=== PATIENT | female | born 1975 | race African-American/Black ===

== ENCOUNTER 2016-06-27 20:18 | Emergency (ER) | payer SELFPAY ==
[~2016-06-27] VITALS: Ht 157.5 cm; Wt 76.7 kg
[~2016-06-27 20:18] MED LIST: DIAZ2TAB3 PO
[2016-06-27] MEDS ORDERED: ONDANSETRON 2MG/ML, 2ML ONE (21:52)
[2016-06-27] MEDS ORDERED: ONDANSETRON 2MG/ML, 2ML IVPush ONE (22:00)
[2016-06-27] MEDS ORDERED: SODIUM CHLORIDE FLUSH 10ML SYR IVF ONE (22:00)
[2016-06-27] MEDS ORDERED: SODIUM CHLORIDE 0.9% 1,000ML IVBOLUS ONE (22:00)
[2016-06-27 22:40] LABS: ASPARTATE AMINO TRANSFERASE 16 U/L (15-37); BLOOD UREA NITROGEN 9 mg/dL (7-18)
[2016-06-27 23:12] VITALS: BP 112/74
== END 2016-06-27 23:15 | disposition home or self-care (01) ==
LOC: ED 23:09
DX: G44.89 Other headache syndrome (principal); R11.0 Nausea; E86.0 Dehydration
CPT/HCPCS: 36415; 70450; 80053; 81003; 84703; 85025; 93005; 96361; 96374; 99285; J2405; J7030

== ENCOUNTER 2016-08-26 23:11 | Emergency (ER) | payer SELFPAY ==
[~2016-08-26] VITALS: Ht 157.5 cm; Wt 74.1 kg
[2016-08-26] MEDS ORDERED: MORPHINE SULFATE 4 MG/ML, 1ML ONE (23:59)
[2016-08-26] MEDS ORDERED: PROMETHAZINE 25 MG/ML, 1ML ONE (23:59)
[2016-08-27] MEDS ORDERED: SODIUM CHLORIDE 0.9% 1,000ML IVBOLUS ONE
[2016-08-27] MEDS ORDERED: FAMOTIDINE 20 MG/2 ML IVP ONE
[2016-08-27] MEDS ORDERED: PROMETHAZINE 25 MG/ML, 1ML IM ONE
[2016-08-27] MEDS ORDERED: FAMOTIDINE 20 MG/2 ML ONE
[2016-08-27] MEDS ORDERED: MORPHINE SULFATE 4 MG/ML, 1ML IVPush PRN
[2016-08-27 00:01] LABS: ASPARTATE AMINO TRANSFERASE 12 U/L (15-37); BLOOD UREA NITROGEN 12 mg/dL (7-18)
[2016-08-27 01:52] VITALS: BP 136/80
== END 2016-08-27 02:20 | disposition home or self-care (01) ==
LOC: ED 23:59
DX: K80.70 Calculus of gallbladder and bile duct without cholecystitis without obstruction (principal)
CPT/HCPCS: 36415; 76700; 80053; 81003; 83690; 85025; 96361; 96372; 96374; 96375; 99285; J2550; J7030; S0028

== ENCOUNTER 2016-11-02 09:34 | Emergency (ER) | payer SELFPAY ==
[~2016-11-02] VITALS: Ht 157.5 cm; Wt 73.8 kg
[2016-11-02] MEDS ORDERED: SODIUM CHLORIDE 0.9% 1,000 ML IV ONE (11:09)
[2016-11-02] MEDS ORDERED: MECLIZINE CHEWABLE 25 MG TAB ONE (11:18)
[2016-11-02] MEDS ORDERED: ONDANSETRON 2MG/ML, 2ML ONE (11:19)
[2016-11-02 11:29] LABS: HEMATOCRIT 40.9 % (34.6-47.8); HEMOGLOBIN 13.7 g/dL (11.7-16.4); WHITE BLOOD COUNT 6.9 x10^3/uL (3.4-10)
[2016-11-02] MEDS ORDERED: SODIUM CHLORIDE 0.9% 1,000ML IVBOLUS ONE (11:30)
[2016-11-02] MEDS ORDERED: ONDANSETRON 2MG/ML, 2ML IVPush ONE (11:30)
[2016-11-02] MEDS ORDERED: MECLIZINE CHEWABLE 25 MG TAB PO ONE (11:30)
[2016-11-02] MEDS ORDERED: SODIUM CHLORIDE FLUSH 10ML SYR IVF ONE (11:30)
[2016-11-02 11:41] LABS: ASPARTATE AMINO TRANSFERASE 11 U/L (15-37); BLOOD UREA NITROGEN 7 mg/dL (7-18)
[2016-11-02 14:06] VITALS: BP 139/85
== END 2016-11-02 14:08 | disposition home or self-care (01) ==
LOC: ED 13:16
DX: H81.393 Other peripheral vertigo, bilateral (principal); H81.13 Benign paroxysmal vertigo, bilateral; Z90.710 Acquired absence of both cervix and uterus
CPT/HCPCS: 36415; 70450; 80053; 85025; 93005; 96361; 96374; 99285; J2405; J7030

== ENCOUNTER 2016-12-29 11:34 | Day surgery (SDC) | payer BC, OTHER ==
[~2016-12-29] VITALS: Ht 157.5 cm; Wt 72.7 kg
[~2016-12-29 11:34] MED LIST changes: +INDOCYANINE GREEN 25 MG VIAL IV ONE; +None at this Time
[2016-12-29] MEDS ORDERED: MIDAZOLAM 1 MG/ML, 2ML ONE (11:48)
[2016-12-29] MEDS ORDERED: FENTANYL PF 250 MCG/5ML ONE (11:48)
[2016-12-29] MEDS ORDERED: GLYCOPYRROLATE 0.2MG/1ML, 5ML ONE (11:50)
[2016-12-29] MEDS ORDERED: ROCURONIUM 10 MG/ML ONE (11:50)
[2016-12-29] MEDS ORDERED: PROPOFOL 10 MG/ML, 20ML ONE (11:50)
[2016-12-29] MEDS ORDERED: DEXAMETHASONE 4 MG/ML, 1ML ONE (11:50)
[2016-12-29] MEDS ORDERED: SUCCINYLCHOLINE 20 MG/ML, 10ML ONE (11:50)
[2016-12-29] MEDS ORDERED: CEFAZOLIN 1,000 MG ONE (11:50)
[2016-12-29] MEDS ORDERED: NEOSTIGMINE 1 MG/ML, 10ML ONE (11:50)
[2016-12-29] MEDS ORDERED: ONDANSETRON 2MG/ML, 2ML ONE (11:50)
[2016-12-29] MEDS ORDERED: LACTATED RINGERS 1,000 ML IV SCH (11:57)
[2016-12-29 11:59] VITALS: BP 133/95
[2016-12-29] MEDS ORDERED: LIDOCAINE 1%, 2ML SQ PRN (12:00)
[2016-12-29] MEDS ORDERED: KETOROLAC 30 MG/1 ML ONE ×2 (12:20→14:01)
[2016-12-29] MEDS ORDERED: BUPIVACAINE/PF 0.5% ONE (12:54)
[2016-12-29] MEDS ORDERED: EPINEPHRINE 1 MG/ML, 1ML ONE (12:54)
[2016-12-29] MEDS ORDERED: INDOCYANINE GREEN 25 MG VIAL ONE (13:08)
[2016-12-29] MEDS ORDERED: PROMETHAZINE 25 MG/ML, 1ML ONE (13:15)
[2016-12-29] MEDS ORDERED: ESMOLOL 100 MG/10 ML ONE (13:35)
[2016-12-29] MEDS ORDERED: HYDROmorphone 1 MG/ML, 1ML ONE ×2 (13:41→14:59)
[2016-12-29] MEDS ORDERED: OXYcodone 5 MG/5 ML ORAL.SOL UDC PO PRN (14:00)
[2016-12-29] MEDS ORDERED: ACETAMINOPHEN 325 MG TABLET PO PRN (14:00)
[2016-12-29] MEDS ORDERED: HYDROcodone/APAP 7.5-325MG/15ML UDC PO PRN (14:00)
[2016-12-29] MEDS ORDERED: ONDANSETRON 2MG/ML, 2ML IVPush PRN ×2 (14:00→14:30)
[2016-12-29] MEDS ORDERED: PROMETHAZINE 25 MG/ML, 1ML IV PRN (14:00)
[2016-12-29] MEDS ORDERED: MIDAZOLAM 1 MG/ML, 2ML IV PRN (14:00)
[2016-12-29] MEDS ORDERED: NALOXONE 0.4 MG/ML, 1ML ONE (14:21)
[2016-12-29] MEDS ORDERED: ALBUTEROL/IPRATROPIUM 2.5MG/0.5MG, 3 ML ONE (14:27)
[2016-12-29] MEDS ORDERED: morphine SULFATE 10 MG/ML, 1ML IVPush PRN (14:30)
[2016-12-29] MEDS ORDERED: KETOROLAC 30 MG/1 ML IVPush PRN (14:30)
[2016-12-29] MEDS ORDERED: ACETAMINOPHEN 650 MG/20.3 ML UDC ONE (14:39)
[2016-12-29] MEDS ORDERED: FENTANYL PF 100 MCG/2ML ONE ×2 (14:39→14:59)
[2016-12-29] MEDS ORDERED: OXYcodone 5 MG/5 ML ORAL.SOL UDC ONE (14:39)
[2016-12-29] MEDS: FENTANYL PF 100 MCG/2ML IV PRN ×5 (14:40→15:23)
[2016-12-29] MEDS: HYDROmorphone 1 MG/ML, 1ML IV PRN ×4 (15:03→15:24)
[2016-12-29] MEDS ORDERED: SUGAMMADEX 200 MG/2 ML IVPush ONE (15:42)
== END 2016-12-29 22:40 ==
LOC: OUT 11:34 → 4NOR 19:26 → OUT 22:40
PROVIDERS: ATTEND Surgery
DX: K80.10 Calculus of gallbladder with chronic cholecystitis without obstruction (principal); Z90.710 Acquired absence of both cervix and uterus; Z88.8 Allergy status to other drugs, medicaments and biological substances
CPT/HCPCS: 47562; 88304; 94640; G0378; J0171; J0330; J0690; J1100; J1170; J1885; J2250; J2405; J2704; J2710; J3010; J3490; J7120; S2900

== ENCOUNTER → 2017-01-06 | Outpatient (CLI) | payer OTHER ==
[~2017-01-06] MED LIST changes: -INDOCYANINE GREEN 25 MG VIAL IV ONE; +OMNIPAQUE 350 MG/ML, 150 ML BOTTLE ONE
== END | disposition home or self-care (01) ==
LOC: RAD 14:14
PROVIDERS: ATTEND Nurse Practitioner Family
DX: K76.89 Other specified diseases of liver (principal)
CPT/HCPCS: 74178; Q9967

== ENCOUNTER 2017-01-08 01:27 | Emergency (ER) | payer OTHER ==
[~2017-01-08] VITALS: Ht 157.5 cm; Wt 72.7 kg
[~2017-01-08 01:27] MED LIST changes: -OMNIPAQUE 350 MG/ML, 150 ML BOTTLE ONE
[2017-01-08] MEDS ORDERED: SODIUM CHLORIDE 0.9% 1,000ML IVBOLUS ONE (02:00)
[2017-01-08] MEDS ORDERED: AZITHROMYCIN 500 MG TABLET PO ONE (02:00)
[2017-01-08] MEDS ORDERED: CEFTRIAXONE PMX 1GM/50ML 50 ML IV ONE (02:00)
[2017-01-08] MEDS ORDERED: SODIUM CHLORIDE FLUSH 10ML SYR IVF ONE (02:00)
[2017-01-08 02:20] LABS: HEMOGLOBIN 13.6 g/dL (11.7-16.4); WHITE BLOOD COUNT 9.5 x10^3/uL (3.4-10)
[2017-01-08] MEDS ORDERED: morphine SULFATE 10 MG/ML, 1ML ONE (02:20)
[2017-01-08] MEDS ORDERED: ONDANSETRON 2MG/ML, 2ML ONE (02:21)
[2017-01-08 02:29] LABS: ASPARTATE AMINO TRANSFERASE 73 U/L (15-37); BLOOD UREA NITROGEN 10 mg/dL (7-18)
[2017-01-08] MEDS ORDERED: HYDROmorphone 1 MG/ML, 1ML IM ONE (02:30)
[2017-01-08] MEDS ORDERED: ONDANSETRON 2MG/ML, 2ML IVPush ONE (03:00)
[2017-01-08] MEDS ORDERED: MORPHINE SULFATE 4 MG/ML, 1ML IVPush PRN (03:00)
[2017-01-08 03:20] VITALS: BP 138/86
[2017-01-08] MEDS ORDERED: ZIPRASIDONE 20 MG INJ IM ONE ×2 (03:30→03:39)
== END 2017-01-08 04:19 | disposition home or self-care (01) ==
LOC: ED 02:22
DX: K64.4 Residual hemorrhoidal skin tags (principal); K59.00 Constipation, unspecified; R20.2 Paresthesia of skin; Z90.710 Acquired absence of both cervix and uterus
CPT/HCPCS: 36415; 80053; 83735; 84443; 85025; 96372; 96374; 96375; 99284; J2405; J3486

== ENCOUNTER 2017-08-02 13:40 | Emergency (ER) | payer MEDICAID, OTHER ==
[~2017-08-02] VITALS: Ht 157.5 cm; Wt 78.0 kg
[2017-08-02 13:42] VITALS: BP 144/92
[2017-08-02] MEDS ORDERED: ONDANSETRON ODT 4 MG PO ONE (14:00)
[2017-08-02] MEDS ORDERED: HYDROcodone/APAP 5/325 TABLET PO ONE (14:00)
[2017-08-02] MEDS ORDERED: ONDANSETRON ODT 4 MG ONE (14:34)
[2017-08-02] MEDS ORDERED: HYDROcodone/APAP 5/325 TABLET ONE (14:34)
== END 2017-08-02 15:01 | disposition home or self-care (01) ==
LOC: ED 13:42
DX: S22.32XA Fracture of one rib, left side, initial encounter for closed fracture (principal); W10.9XXA Fall (on) (from) unspecified stairs and steps, initial encounter; Y93.89 Activity, other specified; Y99.8 Other external cause status; Y92.89 Other specified places as the place of occurrence of the external cause
CPT/HCPCS: 71101; 99284; Q0162

== ENCOUNTER 2017-09-20 15:35 | Emergency (ER) | payer MEDICAID ==
[~2017-09-20] VITALS: Ht 157.5 cm; Wt 63.6 kg
[2017-09-20 15:38] VITALS: BP 141/90
[2017-09-20] MEDS ORDERED: KETOROLAC 30 MG/1 ML ONE (16:42)
[2017-09-20 16:46] LABS: BASOPHILS # (AUTO) 0.03 x10^3/uL (0-0.1); BASOPHILS % (AUTO) 0 % (0-1); EOSINOPHILS % (AUTO) 2 % (1-7); LYMPHOCYTES # (AUTO) 3.68 x10^3/uL (1-3.4); LYMPHOCYTES % (AUTO) 43 % (22-44); MD NO; MEAN CORPUSCULAR HEMOGLOBIN 28.9 pg (27.0-34.8); MEAN CORPUSCULAR VOLUME 84.8 fL (80-100); MEAN PLATELET VOLUME 8.8 fL (7.4-10.4); MONOCYTES # (AUTO) 0.44 x10^3/uL (0.2-0.8); MONOCYTES % (AUTO) 5 % (2-9); NEUTROPHILS # (AUTO) 4.24 x10^3/uL (1.8-6.8); NEUTROPHILS % (AUTO) 49 % (42-75); PLATELET COUNT 301 x10^3/uL (130-400); RED BLOOD COUNT 4.63 x10^6/uL (3.82-5.3); RED CELL DISTRIBUTION WIDTH 13.2 % (9.6-15.2)
[2017-09-20 16:54] LABS: ALBUMIN 3.6 g/dL (3.4-5.0); ANION GAP 8 mmol/L (5-15); CALCIUM 8.4 mg/dL (8.5-10.1); CHLORIDE 108 mmol/L (98-107)
[2017-09-20 16:57] LABS: ALANINE AMINOTRANSFERASE 21 U/L (12-78); ALKALINE PHOSPHATASE 82 U/L (45-117); BILIRUBIN,TOTAL 0.4 mg/dL (0.2-1.0); CREATININE 0.83 mg/dL (0.55-1.02); TOTAL PROTEIN 7.6 g/dL (6.4-8.2)
[2017-09-20] MEDS ORDERED: KETOROLAC 30 MG/1 ML IM ONE (17:00)
[2017-09-20 17:10] LABS: MICROSCOPIC NOT IND
[2017-09-20 17:13] LABS: CULTURE INDICATED? NO
== END 2017-09-20 18:08 | disposition home or self-care (01) ==
LOC: ED 18:00
DX: S29.012A Strain of muscle and tendon of back wall of thorax, initial encounter (principal); X58.XXXA Exposure to other specified factors, initial encounter; Y93.89 Activity, other specified; Y92.89 Other specified places as the place of occurrence of the external cause; Y99.8 Other external cause status
CPT/HCPCS: 36415; 80053; 81003; 83690; 85025; 96372; 99284; J1885

== ENCOUNTER 2018-03-20 00:26 | Emergency (ER) | payer MEDICAID, OTHER ==
[~2018-03-20] VITALS: Ht 157.5 cm; Wt 77.0 kg
[2018-03-20 01:00] LABS: MEAN CORPUSCULAR HEMOGLOBIN 28.8 pg (27.0-34.8); MEAN CORPUSCULAR HGB CONC 33.9 g/dL (32.4-35.8); MEAN PLATELET VOLUME 8.6 fL (7.4-10.4); PLATELET COUNT 320 x10^3/uL (130-400); RED BLOOD COUNT 4.66 x10^6/uL (3.82-5.3); RED CELL DISTRIBUTION WIDTH 13.3 % (9.6-15.2)
[2018-03-20] MEDS ORDERED: PANTOPRAZOLE 20MG TABLET PO ONE (01:00)
[2018-03-20] MEDS ORDERED: ONDANSETRON ODT 4 MG PO ONE (01:00)
[2018-03-20] MEDS ORDERED: ONDANSETRON ODT 4 MG ONE (01:02)
[2018-03-20] MEDS ORDERED: PANTOPRAZOLE 20MG TABLET ONE (01:02)
[2018-03-20 01:08] LABS: ANION GAP 7 mmol/L (5-15); CALCIUM 8.4 mg/dL (8.5-10.1); CHLORIDE 107 mmol/L (98-107); CREATININE 0.81 mg/dL (0.55-1.02)
[2018-03-20 01:09] LABS: ALANINE AMINOTRANSFERASE 16 U/L (12-78); ALBUMIN 3.6 g/dL (3.4-5.0)
[2018-03-20 01:13] LABS: ALKALINE PHOSPHATASE 80 U/L (45-117); BILIRUBIN,TOTAL 0.2 mg/dL (0.2-1.0); TOTAL PROTEIN 7.5 g/dL (6.4-8.2); TROPONIN I < 0.015 ng/mL (0.000-0.045)
--- NOTE | 2018-03-20 02:03 | NUR ---
PT'S CHART UP FOR RECHECK
[2018-03-20 02:11] LABS: BASOPHILS # (AUTO) 0.05 x10^3/uL (0-0.1); BASOPHILS % (AUTO) 1 % (0-1); EOSINOPHILS # (AUTO) 0.23 x10^3/uL (0-0.4); EOSINOPHILS % (AUTO) 3 % (1-7); LYMPHOCYTES # (AUTO) 4.21 x10^3/uL (1-3.4); LYMPHOCYTES % (AUTO) 55 % (22-44); MD SCAN; MONOCYTES # (AUTO) 0.47 x10^3/uL (0.2-0.8); MONOCYTES % (AUTO) 6 % (2-9); NEUTROPHILS # (AUTO) 2.66 x10^3/uL (1.8-6.8); NEUTROPHILS % (AUTO) 35 % (42-75)
[2018-03-20 02:33] VITALS: BP 141/94
[2018-03-20 02:48] LABS: MICROSCOPIC NOT IND
[2018-03-20 03:11] LABS: CULTURE INDICATED? NO
== END 2018-03-20 03:24 | disposition home or self-care (01) ==
LOC: ED 01:09
DX: K29.00 Acute gastritis without bleeding (principal); G43.909 Migraine, unspecified, not intractable, without status migrainosus; Z88.8 Allergy status to other drugs, medicaments and biological substances
CPT/HCPCS: 36415; 74022; 80053; 81003; 83690; 84484; 85025; 93005; 99284; Q0162

== ENCOUNTER 2018-08-08 17:50 | Emergency (ER) | payer MEDICAID ==
[~2018-08-08] VITALS: Ht 157.5 cm; Wt 75.0 kg
--- NOTE | 2018-08-08 18:10 | NUR ---
PT TO ED AFTER FALLING DOWN 1 STEP OFF [place] YESTERDAY. PT STATES HIT HEAD ON A PILLAR AND HAS HAD N/V SINCE THIS MORNING. DENIES LOC, - BLOOD THINNERS. PT IS A&OX4 AT THIS TIME WITH VASQUES, N/V AND PHOTOSENSITIVITY. PT CONNECTED TO MONITORS. VSS. AWAITING EDMD ASSESSMENT AND ORDERS.
[2018-08-08] MEDS ORDERED: PROCHLORPERAZINE 5 MG/ML, 2ML IM ONE (18:30)
[2018-08-08] MEDS ORDERED: KETOROLAC 30 MG/1 ML IM ONE (18:30)
[2018-08-08] MEDS ORDERED: DIPHENHYDRAMINE 25 MG CAPSULE PO ONE (18:30)
[2018-08-08 19:10] LABS: BASOPHILS # (AUTO) 0.04 x10^3/uL (0-0.1); BASOPHILS % (AUTO) 1 % (0-1); EOSINOPHILS % (AUTO) 4 % (1-7); LYMPHOCYTES # (AUTO) 3.99 x10^3/uL (1-3.4); LYMPHOCYTES % (AUTO) 46 % (22-44); MD NO; MEAN CORPUSCULAR HEMOGLOBIN 28.7 pg (27.0-34.8); MEAN CORPUSCULAR HGB CONC 32.9 g/dL (32.4-35.8); MEAN CORPUSCULAR VOLUME 87.2 fL (80-100); MEAN PLATELET VOLUME 8.6 fL (7.4-10.4); MONOCYTES # (AUTO) 0.43 x10^3/uL (0.2-0.8); MONOCYTES % (AUTO) 5 % (2-9); NEUTROPHILS # (AUTO) 3.85 x10^3/uL (1.8-6.8); NEUTROPHILS % (AUTO) 45 % (42-75); PLATELET COUNT 296 x10^3/uL (130-400); RED BLOOD COUNT 4.64 x10^6/uL (3.82-5.3); RED CELL DISTRIBUTION WIDTH 13.6 % (9.6-15.2)
[2018-08-08 19:15] LABS: ANION GAP 6 mmol/L (5-15); CALCIUM 8.7 mg/dL (8.5-10.1); CHLORIDE 109 mmol/L (98-107)
[2018-08-08] MEDS ORDERED: PROCHLORPERAZINE 5 MG/ML, 2ML ONE (19:15)
[2018-08-08] MEDS ORDERED: DIPHENHYDRAMINE 25 MG CAPSULE ONE (19:15)
[2018-08-08] MEDS ORDERED: KETOROLAC 30 MG/1 ML ONE (19:15)
--- NOTE | 2018-08-08 19:24 | NUR ---
PT RESTING IN ROOM WITH LIGHTS DIMMED. VSS. PT MEDICATED PER MAR. NO NEEDS EXPRESSED. AWAITING RESULTS AT THIS TIME.
--- NOTE | 2018-08-08 19:35 | NUR ---
ALL RESULTS BACK AT THIS TIME. CHART UP FOR RECHECK.
[2018-08-08 19:45] VITALS: BP 112/79
--- NOTE | 2018-08-08 19:46 | NUR ---
PATIENT WALKED TO DISCHARGE. CALLED AND AWAITING RIDE FROM MOTHER.
== END 2018-08-08 19:48 | disposition home or self-care (01) ==
LOC: ED 19:42
DX: S09.90XA Unspecified injury of head, initial encounter (principal); M54.2 Cervicalgia; H53.8 Other visual disturbances; R11.2 Nausea with vomiting, unspecified; W17.89XA Other fall from one level to another, initial encounter; Y93.89 Activity, other specified; Y92.89 Other specified places as the place of occurrence of the external cause; Y99.8 Other external cause status
CPT/HCPCS: 36415; 70450; 72125; 80048; 85025; 96372; 99284; J0780; J1885; Q0163

== ENCOUNTER 2019-01-08 19:28 | Emergency (ER) | payer MEDICAID, OTHER ==
[~2019-01-08] VITALS: Ht 157.5 cm; Wt 74.3 kg
[2019-01-08 19:38] VITALS: BP 143/99
--- NOTE | 2019-01-08 20:14 | NUR ---
THE PT STATED THAT SHE FELL OUT OF THE TRUCK [place]ING ON L HAND AND HIT L SIDE OF HEAD. ICE TO L HEAD AND L HAND. NO NOTED INJURY.
[2019-01-08] MEDS ORDERED: KETOROLAC 30 MG/1 ML ONE (20:54)
[2019-01-08] MEDS ORDERED: KETOROLAC 30 MG/1 ML IM ONE (21:00)
--- NOTE | 2019-01-08 21:03 | NUR ---
L WRIST SPLINTED W/ JENNIFER BY SOLAR PV INSTALLER.
== END 2019-01-08 21:06 | disposition home or self-care (01) ==
LOC: ED 21:00
DX: S63.502A Unspecified sprain of left wrist, initial encounter (principal); S09.8XXA Other specified injuries of head, initial encounter; F07.81 Postconcussional syndrome; R19.7 Diarrhea, unspecified; I10 Essential (primary) hypertension; Z90.49 Acquired absence of other specified parts of digestive tract; Z90.710 Acquired absence of both cervix and uterus; Z88.8 Allergy status to other drugs, medicaments and biological substances; V89.2XXA Person injured in unspecified motor-vehicle accident, traffic, initial encounter; Y93.89 Activity, other specified; Y92.89 Other specified places as the place of occurrence of the external cause; Y99.8 Other external cause status
CPT/HCPCS: 29260; 73110; 73130; 96372; 99283; J1885

== ENCOUNTER 2019-04-14 10:43 | Emergency (ER) | payer MEDICAID ==
[~2019-04-14] VITALS: Ht 157.5 cm; Wt 75.0 kg
--- NOTE | 2019-04-14 11:24 | NUR ---
LUNCH RN: MD AT BEDSIDE FOR ASSESSMENT.
[2019-04-14] MEDS ORDERED: PROMETHAZINE 25 MG/ML, 1ML IM ONE (11:30)
[2019-04-14] MEDS ORDERED: SODIUM CHLORIDE 0.9% 1,000ML IVBOLUS ONE (11:30)
[2019-04-14] MEDS ORDERED: ONDANSETRON 2MG/ML, 2ML IVPush ONE (11:30)
[2019-04-14] MEDS ORDERED: MORPHINE SULFATE 4 MG/ML, 1ML IVPush PRN (11:30)
[2019-04-14] MEDS ORDERED: ONDANSETRON 2MG/ML, 2ML ONE (11:43)
[2019-04-14] MEDS ORDERED: PROMETHAZINE 25 MG/ML, 1ML ONE (11:43)
[2019-04-14] MEDS ORDERED: MORPHINE SULFATE 4 MG/ML, 1ML ONE (11:44)
[2019-04-14 11:51] LABS: BASOPHILS # (AUTO) 0.02 x10^3/uL (0-0.1); BASOPHILS % (AUTO) 0 % (0-1); EOSINOPHILS # (AUTO) 0.06 x10^3/uL (0-0.4); EOSINOPHILS % (AUTO) 1 % (1-7); LYMPHOCYTES # (AUTO) 1.99 x10^3/uL (1-3.4); LYMPHOCYTES % (AUTO) 37 % (22-44); MD NO; MEAN CORPUSCULAR HEMOGLOBIN 28.4 pg (27.0-34.8); MEAN CORPUSCULAR HGB CONC 33.2 g/dL (32.4-35.8); MEAN CORPUSCULAR VOLUME 85.6 fL (80-100); MEAN PLATELET VOLUME 8.6 fL (7.4-10.4); MONOCYTES # (AUTO) 0.35 x10^3/uL (0.2-0.8); MONOCYTES % (AUTO) 7 % (2-9); NEUTROPHILS # (AUTO) 2.93 x10^3/uL (1.8-6.8); NEUTROPHILS % (AUTO) 55 % (42-75); PLATELET COUNT 264 x10^3/uL (130-400); RED CELL DISTRIBUTION WIDTH 13.6 % (9.6-15.2)
--- NOTE | 2019-04-14 11:54 | NUR ---
DONN RN: PT PRESENTING TO ER FOR N/V TODAY WITH MIGRAINES AND BILATERAL LOWER ABD PAIN. STS BM NORMAL. HX OF MIGRAINES. CONNECTED TO MONITORING, VSS. FAMILY AT BEDSIDE. CALL LIGHT WITHIN REACH. IV PLACED, LABS DRAWN, PT MEDICATED PER APR. AWAITING TEST RESULTS AT THIS TIME REPORT GIVEN TO LEROY MORALES
[2019-04-14 11:57] LABS: CHLORIDE 108 mmol/L (98-107)
[2019-04-14 12:03] LABS: ALANINE AMINOTRANSFERASE 211 U/L (12-78); ALBUMIN 3.5 g/dL (3.4-5.0); ANION GAP 6 mmol/L (5-15); CALCIUM 8.6 mg/dL (8.5-10.1); CREATININE 0.88 mg/dL (0.55-1.02)
[2019-04-14 12:21] LABS: ALKALINE PHOSPHATASE 105 U/L (45-117); BILIRUBIN,TOTAL 0.6 mg/dL (0.2-1.0); TOTAL PROTEIN 7.7 g/dL (6.4-8.2)
--- NOTE | 2019-04-14 12:45 | NUR ---
report received from break ANDREW Osorio. pt instructed to provide clean catch ua, up to bathroom with steady gait. urine sent to lab. pt now back in bed, reattached to bp and spo2 monitors. call light in reach. pt notes she is feeling better but remains mildly nauseated. awaiting urine results and dispo.
[2019-04-14 13:09] LABS: MICROSCOPIC INDICATED
[2019-04-14 13:23] LABS: CULTURE INDICATED? YES
[2019-04-14] MEDS ORDERED: ONDANSETRON ODT 4 MG ONE (13:50)
[2019-04-14] MEDS ORDERED: ONDANSETRON ODT 4 MG PO PRN (14:00)
[2019-04-14 14:46] VITALS: BP 121/86
--- NOTE | 2019-04-14 14:47 | NUR ---
PT GIVEN DC INSTRUCTIONS AND SCRIPT, PT EDUCATED REGARDING RX FOR ZOFRAN, PHENERGAN AND BENTYL. PT STATES ABD PAIN AND NAUSEA RESOLVED, PT TOLERATING PO FLUIDS. PT INSTRUCTED NOT TO DRIVE TODAY D/T MEDS GIVEN, PT HAS RIDE HOME. PT AMB TO DC DESK WITH STEADY GAIT, NADN AT DC.
== END 2019-04-14 14:48 | disposition home or self-care (01) ==
LOC: ED 11:12
DX: R11.2 Nausea with vomiting, unspecified (principal); R10.84 Generalized abdominal pain; E86.0 Dehydration; R51 Headache
CPT/HCPCS: 36415; 80053; 81001; 83690; 84703; 85025; 87086; 96361; 96372; 96374; 96375; 99285; J2270; J2405; J2550; J7030; Q0162

== ENCOUNTER 2019-05-25 17:10 | Emergency (ER) | payer SELFPAY ==
[~2019-05-25] VITALS: Ht 157.5 cm; Wt 76.0 kg
[2019-05-25 17:30] VITALS: BP 148/92
[2019-05-25] MEDS ORDERED: DEXAMETHASONE 4 MG TABLET PO ONE (18:00)
[2019-05-25] MEDS ORDERED: DEXAMETHASONE 4 MG TABLET ONE (19:05)
== END 2019-05-25 19:12 | disposition home or self-care (01) ==
LOC: ED 17:45
DX: J02.8 Acute pharyngitis due to other specified organisms (principal); B34.9 Viral infection, unspecified; G43.909 Migraine, unspecified, not intractable, without status migrainosus
CPT/HCPCS: 71045; 87081; 87880; 99284

== ENCOUNTER 2019-05-28 18:11 | Emergency (ER) | payer MEDICAID ==
[~2019-05-28] VITALS: Ht 157.5 cm; Wt 75.7 kg
[2019-05-28 18:22] VITALS: BP 129/91
--- NOTE | 2019-05-28 18:54 | NUR ---
Patient given discharge instructions and Rx, they have confirmed that they understand the instructions. Patient ambulatory with steady gait.
== END 2019-05-28 19:07 | disposition home or self-care (01) ==
LOC: ED 18:56
DX: J02.8 Acute pharyngitis due to other specified organisms (principal); J01.00 Acute maxillary sinusitis, unspecified; J01.10 Acute frontal sinusitis, unspecified; R51 Headache; R19.7 Diarrhea, unspecified; R00.0 Tachycardia, unspecified
CPT/HCPCS: 99283

== ENCOUNTER 2019-06-21 05:35 | Emergency (ER) | payer SELFPAY ==
[~2019-06-21] VITALS: Ht 157.5 cm; Wt 76.9 kg
[2019-06-21 05:37] VITALS: BP 155/79
[2019-06-21] MEDS ORDERED: AMOXICILLIN/CLAV 875-125MG TABLET PO ONE (05:58)
[2019-06-21] MEDS ORDERED: OXYcodone/APAP 10/325MG TABLET PO ONE (06:00)
[2019-06-21] MEDS ORDERED: ONDANSETRON ODT 4 MG PO ONE (06:00)
[2019-06-21] MEDS ORDERED: AMOXICILLIN/CLAV 875-125MG TABLET ONE (06:04)
[2019-06-21] MEDS ORDERED: ONDANSETRON ODT 4 MG ONE (06:04)
[2019-06-21] MEDS ORDERED: OXYcodone/APAP 10/325MG TABLET ONE (06:04)
== END 2019-06-21 06:40 | disposition home or self-care (01) ==
LOC: ED 05:51
DX: K04.7 Periapical abscess without sinus (principal); R11.2 Nausea with vomiting, unspecified; R19.7 Diarrhea, unspecified; R42 Dizziness and giddiness; R51 Headache; M54.2 Cervicalgia
CPT/HCPCS: 99284; Q0162

== ENCOUNTER 2019-06-23 14:18 | Emergency (ER) | payer MEDICAID ==
[~2019-06-23] VITALS: Ht 157.5 cm; Wt 76.0 kg
[2019-06-23 14:25] VITALS: BP 127/87
--- NOTE | 2019-06-23 15:08 | NUR ---
REPORT RECEIVED FROM LEROY MORALES.
--- NOTE | 2019-06-23 15:23 | NUR ---
REPORT GIVEN TO ANDREW OLIVO.
[2019-06-23] MEDS ORDERED: ONDANSETRON ODT 8 MG ONE (15:26)
[2019-06-23] MEDS ORDERED: KETOROLAC 30 MG/1 ML ONE (15:26)
[2019-06-23] MEDS ORDERED: HYDROmorphone 1 MG/ML, 1ML INJ ONE (15:26)
[2019-06-23] MEDS ORDERED: HYDROmorphone 1 MG/ML, 1ML INJ IM ONE (15:30)
[2019-06-23] MEDS ORDERED: ONDANSETRON ODT 8 MG PO ONE (15:30)
[2019-06-23] MEDS ORDERED: KETOROLAC 30 MG/1 ML IM ONE (15:30)
--- NOTE | 2019-06-23 15:35 | NUR ---
PT MEDICATED PER EMAR.
--- NOTE | 2019-06-23 16:10 | NUR ---
PT UP FOR RECHECK AT THIS TIME.
--- NOTE | 2019-06-23 16:55 | NUR ---
Patient given discharge instructions and they have confirmed that they understand the instructions. Patient ambulatory with steady gait.
== END 2019-06-23 16:48 | disposition home or self-care (01) ==
LOC: ED 14:53
DX: K02.9 Dental caries, unspecified (principal); R11.2 Nausea with vomiting, unspecified; R51 Headache; Z90.49 Acquired absence of other specified parts of digestive tract; Z90.710 Acquired absence of both cervix and uterus
CPT/HCPCS: 96372; 99284; J1170; J1885; Q0162

== ENCOUNTER 2020-02-02 15:39 | Emergency (ER) | payer SELFPAY ==
[~2020-02-02] VITALS: Ht 157.5 cm; Wt 71.6 kg
[2020-02-02 15:42] VITALS: BP 138/98
[2020-02-02 20:28] LABS: BASOPHILS % (AUTO) 1 % (0-1); EOSINOPHILS % (AUTO) 3 % (1-7); LYMPHOCYTES % (AUTO) 39 % (22-44); MEAN CORPUSCULAR HEMOGLOBIN 27.9 pg (27.0-34.8); MEAN CORPUSCULAR HGB CONC 33.5 g/dL (32.4-35.8); MEAN PLATELET VOLUME 8.6 fL (7.4-10.4); MONOCYTES % (AUTO) 7 % (2-9); NEUTROPHILS % (AUTO) 50 % (42-75); PLATELET COUNT 267 x10^3/uL (130-400); RED BLOOD COUNT 4.85 x10^6/uL (3.82-5.3); RED CELL DISTRIBUTION WIDTH 13.6 % (9.6-15.2)
[2020-02-02 20:32] LABS: MD NO
[2020-02-02 20:36] LABS: ALANINE AMINOTRANSFERASE 23 U/L (12-78); ALBUMIN 3.6 g/dL (3.4-5.0); ANION GAP 5 mmol/L (5-15); CALCIUM 8.6 mg/dL (8.5-10.1); CHLORIDE 109 mmol/L (98-107); CREATININE 0.85 mg/dL (0.55-1.02)
[2020-02-02 20:38] LABS: ALKALINE PHOSPHATASE 83 U/L (45-117); BILIRUBIN,TOTAL 0.4 mg/dL (0.2-1.0); TOTAL PROTEIN 7.5 g/dL (6.4-8.2)
== END 2020-02-02 21:16 | disposition home or self-care (01) ==
LOC: ED 18:18
DX: J06.9 Acute upper respiratory infection, unspecified (principal); J20.8 Acute bronchitis due to other specified organisms; R05 Cough; R09.81 Nasal congestion; R94.31 Abnormal electrocardiogram [ECG] [EKG]; M79.10 Myalgia, unspecified site; G43.909 Migraine, unspecified, not intractable, without status migrainosus
CPT/HCPCS: 36415; 71045; 80053; 85025; 93005; 99285